=== PATIENT | female | born 1960 | race Caucasian/White ===

== ENCOUNTER 2023-10-14 07:33 | Outpatient (AMB) | payer OTHER, SELFPAY ==
--- NOTE | 2023-10-14 07:45 | A.OFFPC_ITS ---
Vital Signs 10/14/23 07:48 Height 5 ft Weight 153 lb BMI 29.9 BP 130/80 Blood Pressure Location Lt brachial Position Sitting Pulse 93 Pulse Source Pulse Oximeter Pulse Oximetry (%) 98 Oxygen Delivery Method Room Air Intake Visit Reasons: New patient-Pre Diabetic, High Cholesterol Intake Note: Pt is here today as a New Patient to [facility] care Allergies No Known Allergies Allergy (Verified 10/14/23 07:48) Medication List - Last Reconciled 10/14/23 by Shaina Sylvester MD atorvastatin 10 mg PO BEDTIME metformin 500 mg PO BID pantoprazole 40 mg PO DAILY Tobacco use date assessed: 10/14/23 Dental Screening Dental Screen Date: 10/14/23 Did you have a dental visit in the last 12 months?: No Was dental information given to patient?: Patient has dentist HPI New patient-Pre Diabetic, High Cholesterol HPI Details Pt presents for [employer]. PMH includes DM2, hyperlipid, controlled on medications. Patient follows up with Nephrology for white coat syndrome and has been having 24 hour blood pressure monitoring annually with normal blood pressure readings. PFSH Family History Father No problems noted. Mother CVA (cerebral vascular accident), Onset Age: 80 Social History Household Members Other:: , 2 children. libriarian, Housing: House Patient Tobacco Use Status: Never used Tobacco e-Cigarette/Vaping Use: Never Used service: No Current occupational status: employed Cognitive needs: No Hearing needs: No Vision needs: Yes Questionnaire PHQ-9 Over the last 2 weeks, how often have you been bothered by any of the following problems? 1. Little interest or pleasure in doing things: several days 2. Feeling down, depressed, or hopeless: several days 3. Trouble falling or staying asleep, or sleeping too much: several days 4. Feeling tired or having little energy: several days 5. Poor appetite or overeating: several days 6. Feeling bad about yourself - or that you are a failure or have let yourself or your family down: several days 7. Trouble concentrating on things, such as reading the newspaper or watching television: several days 8. Moving or speaking so slowly that other people could have noticed. Or the opposite - being so fidgety or restless that you have been moving around a lot more than usual: several days 9. Thoughts that you would be better off or of hurting yourself in some way: several days Total score: 9 Depression Screening Interpretation: Negative Depression Screening Done: Yes Source: Developed by Drs. Popeye Torres, Kaila Cummins, George New and colleagues, with an educational araceli from [email or web address]. Thrive Questionnaire Date Thrive assessed: 10/14/23 I am a: Patient What is your living situation today?: I have a steady place to live Within the past 12 months, did the food you bought not last and you didn't have the money to get more?: I choose not to answer this question Within the past 12 months, did you worry whether your food would run out before you got money to buy more?: I choose not to answer this question Do you have trouble paying for medicines?: I choose not to answer this question Do you have trouble getting transportation to medical appointments?: I choose not to answer this question Do you have trouble paying your heating and electricity bill?: I choose not to answer this question Do you have trouble taking care of your child, family member or friend?: I choose not to answer this question Do you have trouble with day-to-day activities such as bathing, preparing meals, shopping, managing finances, etc.?: I choose not to answer this question Are you currently unemployed and looking for a job?: I choose not to answer this question Are you interested in more education?: I choose not to answer this question THRIVE Score: 0 AUDIT C Alcohol Use Questionnaire (AUDIT-C) 1. How often do you have a drink containing alcohol?: Monthly or less 2. How many drinks containing alcohol do you have on a typical day when you are drinking?: 1 or 2 3. How often do you have six or more drinks on one occasion?: Never Total Score: 1 KAILAH-7 AMB Questionnaire AKILAH-7 Date AKILAH - 7 assessed: 10/14/23 Feeling nervous, anxious, or on edge: 2 = More than half the days Not being able to stop or control worryin = More than half the days Worrying too much about different things: 1 = Several days Trouble relaxin = Several days Being so restless that it is hard to sit still: 1 = Several days Becoming easily annoyed or irritable: 1 = Several days Feeling afraid as if something awful might happen: 1 = Several days Total AKILAH-7 score (0-4 normal; 5-9 mild; 10-14 moderate; 15-21 severe): 9 Source: Developed by Drs. Popeye Torres, Kaila Cummins, George New and colleagues, with an educational araceli from [email or web address]. Review of Systems Const All systems reviewed & are unremarkable except as noted in HPI and below Reports no additional complaints Eyes Reports no additional complaints ENT Reports no additional complaints Card Reports no additional complaints Resp Reports no additional complaints GI Reports no additional complaints Reports no additional complaints Musc Reports no additional complaints Physical exam (Primary Care) Vital Signs: Last Vital Signs Pulse 93 10/14/23 07:48 BP 142/92 H 10/14/23 07:48 Pulse Ox 98 10/14/23 07:48 Oxygen Delivery Method Room Air 10/14/23 07:48 BMI result Body Mass Index 29.9 Tobacco/Smoking Status: Tobacco use Status Tobacco use date assessed 10/14/23 10/14/23 07:52 Patient Tobacco Use Status Never used Tobacco 10/14/23 07:52 e-Cigarette/Vaping Use Never Used 10/14/23 07:52 PHQ-9: PHQ-9 Score PHQ-9: Total score 9 10/14/23 07:54 Depression Screening Interpretation: Negative Thrive Assessment: Date of Thrive Assessment Date Thrive assessed 10/14/23 10/14/23 07:54 Const General: no acute distress HENMT Head: Yes normal to inspection Ears: hearing grossly normal bilaterally General nose exam: Normal external nose present Face and sinus: Yes normal facial exam Mouth: Normal oral and palatal mucosa present Throat: Yes posterior oropharynx normal Eyes General: appearance normal, both eyes and all related structures Neck Neck: Yes no lymphadenopathy and Yes supple Resp Effort & Inspection: normal respiratory effort Auscultation: clear to auscultation bilaterally Cardio Rhythm: regular rhythm Heart sounds: S1 normal heart sound present and S2 normal heart sound present GI Inspection: Yes normal to inspection Palpation (GI): Soft to palpation and No hepatosplenomegaly present Percussion: Yes normal to percussion Auscultation: normal bowel sounds Assessment and Plan Assessment & Plan (1) DM type 2 (diabetes mellitus, type 2): Code(s): E11.9 - Type 2 diabetes mellitus without complications Plan: Check A1c continue metformin ADA diet regular physical activity discussed with the patient follow-up in 3 months (2) Graves disease: Comment: used to take Methimazole, no off meds Code(s): E05.00 - Thyrotoxicosis with diffuse goiter without thyrotoxic crisis or storm Plan: Monitor TSH (3) Gallbladder polyp: Comment: [place] 2022 Code(s): K82.4 - Cholesterolosis of gallbladder Plan: We will obtain a copy of ultrasound report (4) Hyperlipemia: Code(s): E78.5 - Hyperlipidemia, unspecified Plan: Continue atorvastatin check lipid profile (5) GERD (gastroesophageal reflux disease): Code(s): K21.9 - Gastro-esophageal reflux disease without esophagitis Plan: Continue PPI (6) Prolapse of female bladder, acquired: Comment: , erosions in cervix, patient wears a pessary Code(s): N81.10 - Cystocele, unspecified (7) H/O knee surgery: Comment: L meniscus surgery Code(s): Z98.890 - Other specified postprocedural states (8) JUDY positive: Code(s): R76.8 - Other specified abnormal immunological findings in serum (9) White coat syndrome without diagnosis of hypertension: Comment: Follow-up with nephrology, 24 blood pressure monitoring annually Code(s): R03.0 - Elevated blood-pressure reading, without diagnosis of hypertension Orders: Orders Hemoglobin A1c Today E11.9 - Type 2 diabetes mellitus without complications, E78.5 - Hyperlipidemia, unspecified, I10 - Essential (primary) hypertension Complete Blood Count Auto Diff Today E11.9 - Type 2 diabetes mellitus without complications, E78.5 - Hyperlipidemia, unspecified, I10 - Essential (primary) hypertension UA w Microscopic Today R76.8 - Other specified abnormal immunological findings in serum Hemoglobin A1c 3 Months E11.9 - Type 2 diabetes mellitus without complications, E78.5 - Hyperlipidemia, unspecified Comprehensive [place]. Panel Fast 3 Months E11.9 - Type 2 diabetes mellitus without complications, E78.5 - Hyperlipidemia, unspecified Lipid Panel Today E11.9 - Type 2 diabetes mellitus without complications, E78.5 - Hyperlipidemia, unspecified, I10 - Essential (primary) hypertension Comprehensive [place]. Panel Fast Today E11.9 - Type 2 diabetes mellitus without complications, E78.5 - Hyperlipidemia, unspecified, I10 - Essential (primary) hypertension TSH reflex Free T4 Today E11.9 - Type 2 diabetes mellitus without complications, E78.5 - Hyperlipidemia, unspecified, I10 - Essential (primary) hypertension Microalbumin, Random (w Creat) Today E11.9 - Type 2 diabetes mellitus without complications, E78.5 - Hyperlipidemia, unspecified, I10 - Essential (primary) hypertension Vitamin D 25-OH Total Today Z00.00 - Encounter for general adult medical exa mination without abnormal findings JUDY Reflex Titer and Pattern Today R76.8 - Other specified abnormal immunological findings in serum Lipid Panel 3 Months E11.9 - Type 2 diabetes mellitus without complications, E78.5 - Hyperlipidemia, unspecified Coding Level of Care Code New Pt Prev Care 40-64y(81631) Diagnoses DM type 2 (diabetes mellitus, type 2) E11.9 Graves disease E05.00 Gallbladder polyp K82.4 Hyperlipemia E78.5 GERD (gastroesophageal reflux disease) K21.9 Prolapse of female bladder, acquired N81.10 H/O knee surgery Z98.890 JUDY positive R76.8 White coat syndrome without diagnosis of hypertension R03.0
[2023-10-14 07:48] VITALS: BP 130/80; PULSE 93; O2SAT 98; BMI 29.9
== END 2023-10-14 09:50 | disposition home or self-care (01) ==
PROVIDERS: PCP Internal Medicine; Visit Provider Internal Medicine
DX: Z00.00 Encounter for general adult medical examination without abnormal findings (principal); E11.9 Type 2 diabetes mellitus without complications; E05.00 Thyrotoxicosis with diffuse goiter without thyrotoxic crisis or storm; K82.4 Cholesterolosis of gallbladder; E78.5 Hyperlipidemia, unspecified; K21.9 Gastro-esophageal reflux disease without esophagitis; N81.10 Cystocele, unspecified; Z98.890 Other specified postprocedural states; R76.8 Other specified abnormal immunological findings in serum; R03.0 Elevated blood-pressure reading, without diagnosis of hypertension
CPT/HCPCS: 99386

== ENCOUNTER 2024-02-28 12:32 | Outpatient (AMB) | payer OTHER, SELFPAY ==
--- NOTE | 2024-02-28 12:38 | MHC.PC.OV ---
Vital Signs 02/28/24 12:39 Height 5 ft Weight 145 lb BMI 28.3 BP 136/82 Blood Pressure Location Lt brachial Position Sitting Pulse 105 H Pulse Source Pulse Oximeter Pulse Oximetry (%) 97 Oxygen Delivery Method Room Air Intake Visit Reasons: 3-4 month follow up Intake Note: Pt is here today for a follow up visit. Allergies No Known Allergies Allergy (Verified 02/28/24 12:51) Medication List - Last Reconciled 02/28/24 by Shaina Sylvester MD atorvastatin 10 mg PO BEDTIME metformin 500 mg PO BID pantoprazole 40 mg PO DAILY Tobacco use date assessed: 02/28/24 Dental Screening Dental Screen Date: 10/14/23 HPI 3-4 month follow up HPI Details Pt presents for f/u DM 2, hyperlipid, stable on meds. PFSH Surgical History H/O knee surgery Family History Father No problems noted. Mother CVA (cerebral vascular accident), Onset Age: 80 Social History Household Members Other:: , 2 children. libriarian, Housing: House Patient Tobacco Use Status: Never used Tobacco e-Cigarette/Vaping Use: Never Used service: No Current occupational status: employed Cognitive needs: No Hearing needs: No Vision needs: Yes Questionnaire PHQ-9 Over the last 2 weeks, how often have you been bothered by any of the following problems? 1. Little interest or pleasure in doing things: several days 2. Feeling down, depressed, or hopeless: several days 3. Trouble falling or staying asleep, or sleeping too much: more than half the days 4. Feeling tired or having little energy: several days 5. Poor appetite or overeating: several days 6. Feeling bad about yourself - or that you are a failure or have let yourself or your family down: several days 7. Trouble concentrating on things, such as reading the newspaper or watching television: several days 8. Moving or speaking so slowly that other people could have noticed. Or the opposite - being so fidgety or restless that you have been moving around a lot more than usual: not at all 9. Thoughts that you would be better off or of hurting yourself in some way: not at all Total score: 8 Depression Screening Interpretation: Negative Depression Screening Done: Yes 13874 - PHQ-9 Billing: Yes Source: Developed by Drs. Popeye Torres, Kaial Cummins, George New and colleagues, with an educational araceli from [email or web address]. Thrive Questionnaire Date Thrive assessed: 02/28/24 I am a: Patient What is your living situation today?: I have a steady place to live Within the past 12 months, did the food you bought not last and you didn't have the money to get more?: Never true Within the past 12 months, did you worry whether your food would run out before you got money to buy more?: Never true Do you have trouble paying for medicines?: No Do you have trouble getting transportation to medical appointments?: No Do you have trouble paying your heating and electricity bill?: No Do you have trouble taking care of your child, family member or friend?: No Do you have trouble with day-to-day activities such as bathing, preparing meals, shopping, managing finances, etc.?: No Are you currently unemployed and looking for a job?: No Are you interested in more education?: No Please select the resources that you would like help with: None Currently or been in a relationship where the following occur: No concerns reported THRIVE Score: 0 AUDIT C Alcohol Use Questionnaire (AUDIT-C) 1. How often do you have a drink containing alcohol?: Never 3. How often do you have six or more drinks on one occasion?: Never Total Score: 0 AKILAH-7 AMB Questionnaire AKILAH-7 Date AKILAH - 7 assessed: 02/28/24 Feeling nervous, anxious, or on edge: 2 = More than half the days Not being able to stop or control worryin = More than half the days Worrying too much about different things: 2 = More than half the days Trouble relaxin = More than half the days Being so restless that it is hard to sit still: 0 = Not at all Becoming easily annoyed or irritable: 1 = Several days Feeling afraid as if something awful might happen: 1 = Several days Total AKILAH-7 score (0-4 normal; 5-9 mild; 10-14 moderate; 15-21 severe): 10 Source: Developed by Drs. Popeye Torres, Kaila Cummins, George New and colleagues, with an educational araceli from [email or web address]. Review of Systems Const All systems reviewed & are unremarkable except as noted in HPI and below Eyes Reports no additional complaints ENT Reports no additional complaints Card Reports no additional complaints Resp Reports no additional complaints GI Reports no additional complaints Reports no additional complaints Physical exam (Primary Care) Vital Signs: Last Vital Signs Pulse 105 H 02/28/24 12:39 BP 136/82 02/28/24 12:39 Pulse Ox 97 02/28/24 12:39 Oxygen Delivery Method Room Air 02/28/24 12:39 BMI result Body Mass Index 28.3 Tobacco/Smoking Status: Tobacco use Status Tobacco use date assessed 02/28/24 02/28/24 12:55 Patient Tobacco Use Status Never used Tobacco 02/28/24 12:55 e-Cigarette/Vaping Use Never Used 02/28/24 12:39 PHQ-9: PHQ-9 Score PHQ-9: Total score 8 02/28/24 12:55 Depression Screening Interpretation: Negative Thrive Assessment: Date of Thrive Assessment Date Thrive assessed 02/28/24 02/28/24 12:55 Currently or been in a relationship where the following occur: No concerns reported Const General: no acute distress HENMT Head: Yes normal to inspection Ears: hearing grossly normal bilaterally Face and sinus: Yes normal facial exam Mouth: Normal oral and palatal mucosa present Throat: Yes posterior oropharynx normal Neck Neck: Yes supple Resp Effort & Inspection: normal respiratory effort Auscultation: clear to auscultation bilaterally Cardio Rhythm: regular rhythm Heart sounds: S1 normal heart sound present and S2 normal heart sound present GI Inspection: Yes normal to inspection Palpation (GI): Soft to palpation Percussion: Yes normal to percussion Auscultation: normal bowel sounds Assessment and Plan Assessment & Plan (1) DM type 2 (diabetes mellitus, type 2): Code(s): E11.9 - Type 2 diabetes mellitus without complications Plan: A1C is 5.6, cont Metformin, ADA diet, increase exercise (2) Hyperlipemia: Code(s): E78.5 - Hyperlipidemia, unspecified Plan: cont Atrovastatin (3) JUDY positive: Comment: no active,monitor Code(s): R76.8 - Other specified abnormal immunological findings in serum Plan: asymptomatic (4) White coat syndrome without diagnosis of hypertension: Comment: Follow-up with nephrology, 24 blood pressure monitoring annually Code(s): R03.0 - Elevated blood-pressure reading, without diagnosis of hypertension Plan: monitor Orders: Orders Complete Blood Count Auto Diff 6 Months E11.9 - Type 2 diabetes mellitus without complications, E78.5 - Hyperlipidemia, unspecified Lipid Panel 6 Months E11.9 - Type 2 diabetes mellitus without complications, E78.5 - Hyperlipidemia, unspecified Comprehensive [place]. Panel Fast 6 Months E11.9 - Type 2 diabetes mellitus without complications, E78.5 - Hyperlipidemia, unspecified Hemoglobin A1c 6 Months E11.9 - Type 2 diabetes mellitus without complications, E78.5 - Hyperlipidemia, unspecified Microalbumin, Random (w Creat) 6 Months E11.9 - Type 2 diabetes mellitus without complications, E78.5 - Hyperlipidemia, unspecified Coding Level of Care Code Est Pt Level 4 (84855) Diagnoses DM type 2 (diabetes mellitus, type 2) E11.9 Hyperlipemia E78.5 JUDY positive R76.8 White coat syndrome without diagnosis of hypertension R03.0
[2024-02-28 12:39] VITALS: BP 136/82; PULSE 105; O2SAT 97; BMI 28.3
== END 2024-02-28 13:17 | disposition home or self-care (01) ==
PROVIDERS: PCP Internal Medicine; Visit Provider Internal Medicine
DX: E11.9 Type 2 diabetes mellitus without complications (principal); E78.5 Hyperlipidemia, unspecified; R76.8 Other specified abnormal immunological findings in serum; R03.0 Elevated blood-pressure reading, without diagnosis of hypertension
CPT/HCPCS: 99214

== ENCOUNTER 2024-12-21 11:40 | Outpatient (AMB) | payer OTHER, SELFPAY ==
[2024-12-21 11:58] VITALS: BP 136/86; PULSE 104; RESP 20; TEMP 37; O2SAT 99; BMI 27.5
--- NOTE | 2024-12-21 11:58 | A.OFFPC_ITS ---
Vital Signs 12/21/24 11:58 Height 5 ft Weight 141 lb BMI 27.5 BP 136/86 Blood Pressure Location Lt brachial Position Sitting Respiration 20 Pulse 104 H Pulse Source Pulse Oximeter Temp 98.6 F Temp Source Oral Pulse Oximetry (%) 99 Oxygen Delivery Method Room Air Intake Visit Reasons: 6 month F/U Intake Note: Pt is here today for 6 months follow up visit. Allergies No Known Allergies Allergy (Verified 12/21/24 12:01) Medication List - Last Reconciled 12/21/24 by Shaina Sylvester MD atorvastatin 10 mg PO BEDTIME metformin 500 mg PO BID pantoprazole 40 mg PO DAILY Tobacco use date assessed: 12/21/24 Dental Screening Dental Screen Date: 12/21/24 Did you have a dental visit in the last 12 months?: Yes Did you have a dental problem in the last 6 months where you did not have access to dental care?: No Was dental information given to patient?: Patient has dentist HPI 6 month F/U HPI Details Patient presents for the follow-up of hyperlipidemia hypertension chronic GERD stable on current medications. Patient has been taking multivitamin with iron for borderline low iron level. [facility] Medical History (Updated 12/21/24 @ 15:26 by Shaina Sylvester MD) Graves disease Hyperlipemia DM type 2 (diabetes mellitus, type 2) White coat syndrome without diagnosis of hypertension Surgical History History of esophagogastroduodenoscopy (EGD) Hx of colonoscopy H/O knee surgery Family History Father No problems noted. Mother CVA (cerebral vascular accident), Onset Age: 80 Social History Household Members Other:: , 2 children. libriarian, Housing: House Patient Tobacco Use Status: Never used Tobacco e-Cigarette/Vaping Use: Never Used service: No Current occupational status: employed Cognitive needs: No Hearing needs: No Vision needs: Yes Questionnaire PHQ-9 Over the last 2 weeks, how often have you been bothered by any of the following problems? 1. Little interest or pleasure in doing things: not at all 2. Feeling down, depressed, or hopeless: several days 3. Trouble falling or staying asleep, or sleeping too much: several days 4. Feeling tired or having little energy: several days 5. Poor appetite or overeating: several days 6. Feeling bad about yourself - or that you are a failure or have let yourself or your family down: several days 7. Trouble concentrating on things, such as reading the newspaper or watching television: several days 8. Moving or speaking so slowly that other people could have noticed. Or the opposite - being so fidgety or restless that you have been moving around a lot more than usual: not at all 9. Thoughts that you would be better off or of hurting yourself in some wa y: not at all Total score: 6 Depression Screening Interpretation: Negative Depression Screening Done: Yes 19876 - PHQ-9 Billing: Yes Source: Developed by Drs. Popeye Torres, Kaila Cummins, George New and colleagues, with an educational arcaeli from [employer]. Thrive Questionnaire Date Thrive assessed: 12/21/24 I am a: Patient What is your living situation today?: I have a steady place to live Within the past 12 months, did the food you bought not last and you didn't have the money to get more?: Never true Within the past 12 months, did you worry whether your food would run out before you got money to buy more?: Never true Do you have trouble paying for medicines?: No Do you have trouble getting transportation to medical appointments?: No Do you have trouble paying your heating and electricity bill?: No Do you have trouble taking care of your child, family member or friend?: No THRIVE Score: 0 AKILAH-7 AMB Questionnaire AKILAH-7 Date AKILAH - 7 assessed: 12/21/24 Feeling nervous, anxious, or on edge: 0 = Not at all Not being able to stop or control worryin = Not at all Worrying too much about different things: 0 = Not at all Trouble relaxin = Not at all Being so restless that it is hard to sit still: 0 = Not at all Becoming easily annoyed or irritable: 0 = Not at all Feeling afraid as if something awful might happen: 0 = Not at all Total AKILAH-7 score (0-4 normal; 5-9 mild; 10-14 moderate; 15-21 severe): 0 Source: Developed by Drs. Popeye Torres, Kaila Cummins, George New and colleagues, with an educational araceli from [employer]. AKILAH-7 Assessment Billing AKILAH-7 Assessment Tool: AKILAH-7 Assessment 86821 Review of Systems Const All systems reviewed & are unremarkable except as noted in HPI and below Eyes Reports no additional complaints ENT Reports no additional complaints Card Reports no additional complaints Resp Reports no additional complaints GI Reports no additional complaints Reports no additional complaints Physical exam (Primary Care) Vital Signs: Last Vital Signs Temp 98.6 F 12/21/24 11:58 Pulse 104 H 12/21/24 11:58 Resp 20 12/21/24 11:58 BP 136/86 12/21/24 11:58 Pulse Ox 99 12/21/24 11:58 Oxygen Delivery Method Room Air 12/21/24 11:58 BMI result Body Mass Index 27.5 Tobacco/Smoking Status: Tobacco use Status Tobacco use date assessed 12/21/24 12/21/24 12:04 Patient Tobacco Use Status Never used Tobacco 12/21/24 12:04 e-Cigarette/Vaping Use Never Used 12/21/24 12:00 PHQ-9: PHQ-9 Score PHQ-9: Total score 6 12/21/24 12:29 Depression Screening Interpretation: Negative Thrive Assessment: Date of Thrive Assessment Date Thrive assessed 12/21/24 12/21/24 12:00 Const General: no acute distress HENMT Head: Yes normal to inspection Mouth: Normal oral and palatal mucosa present Eyes General: appearance normal, both eyes and all related structures Neck Neck: Yes no lymphadenopathy and Yes supple Resp Effort & Inspection: normal respiratory effort Auscultation: clear to auscultation bilaterally Cardio Rhythm: regular rhythm Heart sounds: S1 normal heart sound present and S2 normal heart sound present GI Inspection: Yes normal to inspection Palpation (GI): Soft to palpation Percussion: Yes normal to percussion Auscultation: normal bowel sounds Coding Level of Care Code Est Pt Level 4 (61485) Diagnoses White coat syndrome without diagnosis of hypertension R03.0 Hyperlipemia E78.5 DM type 2 (diabetes mellitus, type 2) E11.9 Graves disease E05.00 Additional Codes AKILAH-7 Assessment Billing - AKILAH-7 Assessment Tool: AKILAH-7 Assessment 46637 ([id number]) PHQ-9 - 47713 - PHQ-9 Billing: Yes ([id number]) Assessment & Plan Assessment & Plan (1) White coat syndrome without diagnosis of hypertension: Comment: Follow-up with nephrology, 24 blood pressure monitoring annually Code(s): R03.0 - Elevated blood-pressure reading, without diagnosis of hypertension Category: Medical Plan: cont lifestyle (2) Hyperlipemia: Code(s): E78.5 - Hyperlipidemia, unspecified Category: Medical Plan: Continue statin check lipid profile (3) DM type 2 (diabetes mellitus, type 2): Comment: managed by endo, a1c 5.6 11/2024 Code(s): E11.9 - Type 2 diabetes mellitus without complications Category: Medical Plan: Continue ADA diet increase physical activity discussed with the patient. Continue metformin follow-up with endocrinology (4) Graves disease: Comment: used to take Methimazole, no off meds, follow-up by endocrinology Code(s): E05.00 - Thyrotoxicosis with diffuse goiter without thyrotoxic crisis or storm Category: Medical Plan: Follow-up with endocrinology Orders: Orders Complete Blood Count Auto Diff 6 Months E78.5 - Hyperlipidemia, unspecified IRON PROFILE 6 Months E78.5 - Hyperlipidemia, unspecified Comprehensive [place]. Panel Fast 6 Months E78.5 - Hyperlipidemia, unspecified Lipid Panel 6 Months E78.5 - Hyperlipidemia, unspecified Medications: New atorvastatin 10 mg PO BEDTIME 90 tabs 3RF
--- OUTSIDE RECORDS SUMMARY | 2024-12-21 12:34 | XMS_ITS | Clinical Summary ---
Author Organization [facility] Address [address] [place] [address] Care Team Providers Care Windshield Wiper Repairer Name Role Phone Selma Carson MD Primary Care Provider [phone] Social History Tobacco Use Types Packs/Day Years Used Date Smoking Tobacco: Never Assessed Sex and Gender Information Value Date Recorded Sex Assigned at Not on file Gender Identity Not on file Sexual Orientation Not on file Plan of Treatment Not on file Care Teams Windshield Wiper Repairer Relationship Specialty Start Date End Date Selma Carson MD [address] [facility] [address] [place] [address] PCP - General Animal Geneticist 07/18/23
--- OUTSIDE RECORDS SUMMARY | 2024-12-21 12:34 | XMS_ITS | Patient Health Record ---
Author Organization Steffi Phelps MD Address [address] [place] [address] Care Team Providers Care Bilingual Executive Assistant Name Role Phone Selma Carson Primary Care Provider Noemy Waterman Unavailable [phone] Allergies No Known Allergies Results Component Value Reference Range Notes THINPREP PAP AND HPV mRNA E6 /E7 REFLEX 16,18 Reviewed date:04/13/2024 04:56:36 AM Interpretation:pap and hpv neg Performing Lab:NL2, [facility] [address], [address] Marielena Banks Notes/Report: Received Date: NON-FASTING CLINICAL INFORMATION: SCREENING, VAGINAL ESTROGEN LMP: INTEGRATION LEAD PREV. PAP: ?2020 PREV. BX: NONE SOURCE: Cervix, Endocervix STATEMENT OF ADEQUACY: Satisfactory for evaluation. Endocervical/transformati on zone component present. INTERPRETATION/RESULT: Cytology Results: Negative for intraepithelial lesion or malignancy. SEA AIR LAND OFFICER: NONA BENSON(ASCP) CT scre ening location: [address] [address] HPV mRNA E6/E7 Not Detected Not Detected Methodology: Ingot Supervisor-Mediate d Amplification This assay detects E6/E7 viral messenger RNA (mRNA) from 14 high-risk HPV types (16,18,31,33,35,39,45 ,51,52,56,58,59,66,68 ). Cervical sources are required for HPV testing. If a vaginal source from a patient who has had a total hysterectomy with removal of cervix was submitted, please contact the testing laboratory for alternative testing options. For additional information, please refer to http://education.VidRocket/faq/ AOJ043j8 (This link if provided for information/ educational purposes only.) Reason For Referral No Information Medications Medication SIG (Take, Route, Frequency, Duration) Notes Start Date End Date Status metFORMIN HCl 500 MG 1 tablet with a mary l Orally twice a day Active Estradiol 0.1 MG/GM as directed Vaginal twice a week Active Atorvastatin Calcium 10 MG 1 tablet Orally Once a day Active Problems Problem Type SNOMED Code ICD Code Onset Dates Problem Status W/U Status Risk Notes Problem Prolapse of uterine cervical stump (006075232) Cervical stump prolapse (N81.85) Active confirmed Vital Signs Blood pressure diastolic 90 mm Hg 04/06/2024 Height 60 in 04/06/2024 Blood pressure systolic 130 mm Hg 04/06/2024 Weight 142.8 lbs 04/06/2024 BMI 27.89 kg/m2 04/06/2024 Encounters Encounter Location Date Provider Diagnosis Noemy Shafer MD PhD [facility] [address] [place] [phone] 04/06/2024 Noemy Shafer Encounter for gynecological examination (general) (routine) with abnormal findings Z01.411 and Cervical stump prolapse N81.85 Assessments Encounter Date Diagnosis (ICD Code) Assessment Notes Treat ment Notes Treatment Clinical Notes 04/06/2024 Cervical stump prolapse (ICD-10 - N81.85) 04/06/2024 Encounter for gynecological examination (general) (routine) with abnormal findings (ICD-10 - Z01.411) Annual done. pessary removed, cleaned and replaced. Recommend continue estrogen cream. If ongoing issues with bleeding or erosion recommend f/u with Urogyn. Will place order in EPIC No blood and no erosions noted. pap and hpv done. recommend mammogram Plan Of Treatment No Information Insurance Providers Payer Name Payer Address Payer Phone Subscriber Number Group Number Insured Name Patient Relationship to Insured Coverage Start Date Coverage End Date [employer] [place] [address] [place] [address] [id number] Mayte Townsend Self - patient is the insured Medical (General) History Medical History History ICD Code Graves, high cholesterol, GERD PreDM cervical Stump prolapse Surgical History Surgery Date(Month/Year) SCHysterectomy LSC endometriosis Knee surgery - left meniscus
--- OUTSIDE RECORDS SUMMARY | 2024-12-21 12:34 | XMS_ITS | Patient Health Record ---
Author Organization [facility] Address [address] [facility] [address] [place] [address] Care Team Providers Care Carbon Grinder Name Role Phone LETTY Burk, DR BARCLAY Primary Care Provider Unavail J CARLOS Serrano Unavailable [phone] Reason For Referral No Information Plan Of Treatment No Information Insurance Providers Payer Name Payer Address Payer Phone Subscriber Number Group Number Insured Name Patient Relationship to Insured Coverage Start Date Coverage End Date [facility] [address] [place], [place] [phone] DAMIAN CHOI Self - patient is the insured
--- OUTSIDE RECORDS SUMMARY | 2024-12-21 12:34 | XMS_ITS | Encounter Summary ---
Author Organization [facility] Address [address] [place] [address] Phone Care Team Providers Care Dope Pourer Name Role Phone Lee Ann Carson MD Primary Care Provider [phone] Encounter Details Date Type Department Care Team (Late st Contact Info) Description 02/15/2022 Documentation Only [facility] [address] [facility] [address] [place] [address] Pradip Morales MD [address] [place] [address] [address] [place] [address] Social History Tobacco Use Types Packs/Day Years Used Date Smoking Tobacco: Never Smokeless Tobacco: Never Alcohol Use Standard Drinks/Week Comments Yes 0 (1 standard drink = 0.6 oz pure alcohol) Alcoholic Drinks/day: Occasional social drink Comments Unknown Sex and Gender Information Value Date Recorded Sex Assigned at Not on file Legal Sex Female 4:56 PM EST Gender Identity Not on file Sexual Orientation Not on file documented as of this encounter Plan of Treatment Not on file documented as of this encounter Visit Diagnoses Not on filedocumented in this encounter Care Teams Dope Pourer Relationship Specialty Start Date End Date Lee Ann Carson MD [address] [place] [address] [address] [place] [address] PCP - General 06/27/20 documented as of this encounter
--- OUTSIDE RECORDS SUMMARY | 2024-12-21 12:34 | XMS_ITS | Data Portability ---
Author Organization [facility], [facility] Address [id number] [place] [address] Assessment No assessment recorded. Plan of Treatment Reminders Order Date Submit Date Provider Last Modified By Organization Details Last Modified Time Details Appointments None record ed. Lab None record ed. Referral None record ed. Procedures None record ed. Surgeries None record ed. Imaging None record ed. Medication Orders None record ed. Patient TargetsNo targets recorded. Patient Instructions Encounter Date Encounter Id Patient Instructions Last Modified By Organization Details Last Modified Time 11/18/2023 [id number] discussed prolapse with [place] pt had a hysterectomy cx is retained at the introitus concerned because she is getting blood with the pessary which she has had for 5 years vagina today looks healthy pessary placed asked her to leave in place until her next visit continue premarin cream twice a week declines any surgical options f/u 6 weeks [email or web address] Not available 11/18/2023 16:56:36 12/27/2023 [id number] pt advised to us e estrogen cream twice a week remove pessary 1-2 a month and clean f/u 6 months [email or web address] Not available 12/27/2023 14:15:16 Reason for Referral None Reported. Problems No Known Problems Procedures Surgical History Date Name Laterality Status Provider Name and Address Organization Details Recorded Time hysterectomy completed Reyna Penaloza MD [address], [address], [facility] 11/18/2023 15:30:56 Knee arthroscopy/surge ry completed Reyna Penaloza MD [address], [address], [facility] 11/18/2023 15:30:32 Imaging Results None recorded. Procedure Notes None recorded. Medical Equipment None Reported. Allergies No known drug allergies Medications Name Sig Start Date Stop Date Status Note LastModified by Organization Details LastModified Time metformin 500 mg tablet active Not Available Not Available Not Available atorvastati n 10 mg tablet TAKE 1 TABLET BY MOUTH EVERYDAY AT BEDTIME active Not Available Not Available No t Available pantoprazol e 40 mg tablet,andreas yed release active Not Available Not Available Not Available esomeprazol e magnesium 40 mg capsule,del ayed release active Not Available Not Available Not Available lisinopril 5 mg tablet 11/17 completed Not Available Not Available Not Available estradiol 0.01% (0.1 mg/gram) vaginal cream INSERT 1 GM VAGINALLY EVERY SATURDAY AND SATURDAY active Not Available Not Available No t Available bismuth subcit K 140 mg-metronid azole 125 mg-tetracyc line 125 mg cap active Not Available Not Available Not Available Vitals Date Recorded Body height Body mass index (BMI) Body weight Systolic And Diastolic Provider Name and Address Organization Details Last Updated DateTime 11/18/2023 152.4 cm 29.4 kg/m2 14696.01 g 124/82 mm[Hg] eTrrance Cummins [facility] 11/18/2023 15:28:14 Date Recorded Body height Body mass index (BMI) Body weight Systolic And Diastolic Provider Name and Address Organization Details Last Updated DateTime 12/27/2023 152.4 cm 29.1 kg/m2 74890.26 g 137/81 mm[Hg] Yola Azul [facility] 12/27/2023 14:03:02 Social History Question Answer Notes LastModified by Organizat ion Details LastModified Time Tobacco Smoking Status Never Smoker Reyna Penaloza MD [address] [place] [address], [address], [place], [address], [facility] 11/18/2023 15:29:58 Drug Use? No [email or web address] Information no t available 11/18/2023 Sex: Unknown Functional Status Question Answer Note LastModified by Organizat ion Details LastModified Time What is your level of alcohol consumption? Occasional [email or web address] Information not available 11/18/2023 What is your occupation? L[email or web address] Information not available 11/15/2023 Mental Status None recorded. Family History Relationship Description Onset Age of this Age Resolved Age Notes LastModified by Organization Details LastModified Time Father Malignant neoplasm of prostate [email or web address] Not available 2023 15:29:17 Father Carcinoma of stomach [email or web address] Not available 2023 15:29:36 Medical History Condition Response Acid Reflux (GERD) Y Diabetes Y Hyperlipidemia Y Gynecological History Statement/Question Response STIs/STDs N Abnormal Pap N Current Control Method Hysterectom y Sexually Active? Y Obstetrics History GPAL:G 2 P 2 0 0 2 Type Value Full Term 2 Living 2 Total 2 Past Encounters Encounter ID Performer Location Encounter Start Date Encounter Closed Date Diagnosis/Indication Diagnosis SNOMED-CT Code Diagnosis ICD10 Code Diagnosis Note [id number] Reyna Penaloza MD [facility] [address] 11/18/2023 14:47:03 11/18/2023 15:59:44 Prolapse of female genital organs 78533094 N81.9 [id number] Reyna Penaloza MD [facility] [address] [address] 12/27/2023 13:49:59 12/27/2023 14:28:05 Prolapse of female genital organs 36653796 N81.9 Health Concerns Section Related Observation LastModified by Organization Detai ls LastModified Time None Recorded Concern Status LastModified by Organization Details LastModified Time None Recorded Advance Directives Directive None Recorded Payers Insurance Date Sequence Insurance Name Policy Number Policy Yip Covered Member ID Yip Member ID Guarantor Name 06/23/2024 1 [employer] [facility] (PP[place]) [id number] Mayte Townsend [id number] Mayte Townsend 12/27/2023 1 RYLEE [id number] Mayte Townsend [id number] Maytesy Townsend Notes Date Note Type Note Provider Name and Address Organization Details Recorded Time 11/18/2023 text/html 63 year old who had a TAHBSOshe subsequently developed a prolapse and was fitted for a pessaryshe then developed an erosion and the pessary was removedeach time she places the pessary she sees bleeding Reyna Penaloza MD [address] [facility], [address], [place], [address], [facility] 11/18/2023 16:56:50 12/27/2023 text/html pt here for pess jamison follow upno bleedingfeels it is helping her with prolapse Reyna Penaloza MD [address] [facility], [address], [place], [address], [facility] 12/27/2023 14:15:23 OBGyn Episode No OBEpisode recorded.
--- OUTSIDE RECORDS SUMMARY | 2024-12-21 12:34 | XMS_ITS | Encounter Summary ---
Author Organization [facility] Address [address] [place] [address] Care Team Providers Care Commercial Real Estate Manager Name Role Phone Selma Carson MD Primary Care Provider [phone] Jessica Boyer MD Unavailable Encounter Details Date Type Department Care Team ([facility] st Contact Info) Description 10/02/2023 Scanned Document [facility] [address] [facility] [place] [address] Pradip Crockett MD [address] [facility] [address] [place] [address] Social History Tobacco Use Types Packs/Day Years Used Date Smoking Tobacco: Never Smokeless Tobacco: Never Alcohol Use Standard Drinks/Week Comments Not Currently 0 (1 standard drink = 0.6 oz pur e alcohol) PHQ-2 Answer Date Recorded PHQ-2 Total Score 3 02/07/2022 Comments No Sex and Gender Information Value Date Recorded Sex Assigned at Not on file Legal Sex Female 6:52 PM EDT Gender Identity Female 02/05/2022 11:48 AM EDT Sexual Orientation Heterosexual (straight) 02/05 11:48 AM EDT documented as of this encounter Progress Notes * Pradip Crockett MD - 10/02/2023 12:30 PM EDT [place], Please contact patient: 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 A prescription has been called in. While taking the 14 days of treatment she should not take Atorvastatin (it can be resumed again when done) and she should stop the pantoprazole (also can resume after the 2 weeks). Follow up with Peyton Basilio APRN in 2-3 months. A follow up test to prove eradication can be ordered at that time. documented in this encounter Plan of Treatment Upcoming Encounters Date Type Department Care Team ([facility] Contact Info) Description 01/12/2025 4:00 PM EDT Office Visit [facility] [address] [facility] [address] [place] [phone] Kaiser Lee MD [address] [place] [phone] documented as of this encounter Procedures Procedure Name Priority Date/Time Associated Diagnosis Comments PATHOLOGY REPORT 10/02/2023 12:0 0 AM EDT documented in this encounter Results * PATHOLOGY REPORT (10/02/2023 12:00 AM EDT) us Pradip Crockett MD PATHOLOGY/CYTOLOGY ORDERABL ES Final Result documented in this encounter Visit Diagnoses Not on filedocumented in this encounter Care Teams Commercial Real Estate Manager Relationship Specialty Start Date End Date Selma Carson MD [address] [place] [address] PCP - General 05/29/21 Jessica Boyer MD [address] [place] [address] Physician Urogynecology 03/20/24 documented as of this encounter
--- OUTSIDE RECORDS SUMMARY | 2024-12-21 12:34 | XMS_ITS ---
Author Name [facility] Organization Unknown History of Medication Use Medication Directions Dispensed Refills Start Date End Date Stat us PANTOprazole (PROTONIX) 40 MG EC tablet Take 1 tablet (40 mg total) by mouth every morning before breakfast. 07/17/2023 06/15/2024 active metFORMIN (GLUCOPHAGE) 500 MG tablet Take 1 tablet (500 mg total) by mouth daily. 11/15/2021 active atorvastatin 10 mg tablet TAKE 1 TABLET BY MOUTH EVERYDAY AT BEDTIME active esomeprazole magnesium 40 mg capsule,delayed release active metformin 500 mg tablet active atorvastatin (LIPITOR) 10 MG tablet Take 10 mg by mouth daily. active LORazepam (ATIVAN) 0.5 MG tablet Take 1 tablet (0.5 mg total) by mouth 3 times daily (every 8 hours) as needed. active Problems Problem Status Onset Date Problem Type Date of Resolution Source GERD (gastroesophageal reflux disease) active 2022-02-07 ProblemAct [facility] Constipation active 2023-11-30 ProblemAct [facility] Hypertension active 2022-02-07 ProblemAct [facility] Prolapse, post-hysterectomy active 2023-10-16 ProblemAct [facility] Helicobacter pylori gastritis active 2023-11-30 ProblemAct [facility] Colon cancer screening active EncounterDiagnosisAct [facility] Sleep apnea active 2022-02-07 ProblemAct [facility] Vaginal pessary present active 2023-10-16 ProblemAct [facility] Fatty liver active 2023-11-30 ProblemAct [facility] Gallbladder polyp active 2023-11-30 ProblemAct [facility] Hyperlipidemia active 2022-02-[address] Anxiety active 2021-11-08 ProblemAct [facility] Encounters Encounter Type Encounter Reason Primary Diagnosis Location Date Ambulatory Follow-up Follow-up DDN 09/03/2024 Ambulatory Follow-up Follow-up DDN 04/23/2024 Ambulatory 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 [facility] 03/18/2024 Ambulatory Migraine without aura, intractable, without status migrainosus Migraine without aura, intractable, without status migrainosus DDN 02/24/2024 Ambulatory Female genital prolapse, unspecified Female genital prolapse, unspecified [facility] 12/27/2023 Ambulatory Follow-up Follow-up DDN 11/28/2023 Ambulatory no current diagnosis no current diagnosis [facility] 11/18/2023 Ambulatory 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 [facility] 10/18/2023 Ambulatory 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 [facility] 10/16/2023 Ambulatory Follow-up Follow-up DDN 10/16/2023 Ambulatory Gastro-esophageal reflux disease without esophagitis Gastro-esophageal reflux disease without esophagitis DD[facility] 10/02/2023 Ambulatory Gastro-esophageal reflux disease without esophagitis Gastro-esophageal reflux disease without esophagitis DDN 07/17/2023 Ambulatory Dizziness and giddiness DDN 06/28/2022 Ambulatory DDN 04/06/2022 Ambulatory DDN 04/04/2022 Ambulatory DDN 03/30/2022 Ambulatory Cervicalgia DDN 03/28/2022 Ambulatory DDN 03/22/2022 Ambulatory Cervicalgia DDN 03/19/2022 Ambulatory Cervicalgia DDN 03/14/2022 Ambulatory DDN 03/09/2022 Ambulatory Cervicalgia DDN 2022 Ambulatory Cervicalgia DDN 03/02/2022 Ambulatory Sensorineural he aring loss, bilateral DDN 03/01/2022 Ambulatory New daily persis tent headache (ndph) DDN 02/28/2022 Ambulatory Prolapse DDN 06/07/2021 Care Team Organization Name Specialty Phone Email Start Date End Da elisabeth DDN NING [facility]Z [facility] 09/03/2024 10/05/2024 [facility] 11/19/2023 [facility] 11/18/2023 [facility] Carlos Clemens Primary Care 10/15/2023 11/16/2024 [facility] Primary Care 04/06/2022 10/05/2024 [facility] Primary [facility] 02/07/2022 03/28/2022
== END 2024-12-21 14:58 | disposition home or self-care (01) ==
LOC: HO.HMCC 11:40
PROVIDERS: PCP Internal Medicine; Visit Provider Internal Medicine
DX: R03.0 Elevated blood-pressure reading, without diagnosis of hypertension (principal); E78.5 Hyperlipidemia, unspecified; E11.9 Type 2 diabetes mellitus without complications; E05.00 Thyrotoxicosis with diffuse goiter without thyrotoxic crisis or storm

== ENCOUNTER → 2024-12-21 11:40 | Outpatient (BNVA) | payer OTHER, SELFPAY | PROVIDERS: PCP Internal Medicine; Visit Provider Internal Medicine | DX: R03.0 Elevated blood-pressure reading, without diagnosis of hypertension (principal); E78.5 Hyperlipidemia, unspecified; K21.9 Gastro-esophageal reflux disease without esophagitis; E11.9 Type 2 diabetes mellitus without complications; E05.00 Thyrotoxicosis with diffuse goiter without thyrotoxic crisis or storm | CPT/HCPCS: 96127 ==

== ENCOUNTER 2025-05-20 12:45 | Outpatient (AMB) | payer OTHER, SELFPAY ==
--- NOTE | 2025-05-20 12:53 | MHC.PC.OV ---
Vital Signs 05/20/25 12:56 Height 5 ft Weight 135 lb BMI 26.4 BP 126/76 Blood Pressure Location Lt brachial Position Sitting Respiration 18 Pulse 94 Pulse Source Pulse Oximeter Temp 98.5 F Temp Source Oral Pulse Oximetry (%) 98 Oxygen Delivery Method Room Air Intake Visit Reasons: Follow up Intake Note: Pt is here today for a follow up visit. Allergies No Known Allergies Allergy (Verified 05/20/25 13:03) Tobacco use date assessed: 05/20/25 Dental Screening Dental Screen Date: 12/21/24 HPI Follow up HPI Details Pt presents for f/u DM 2, HTN, hyperlipid, stable on meds. 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 Patient was started on lisinopril 2.5 mg daily. She complains of chronic epigastric abdominal discomfort and heartburn worse after eating more noticed post since she has stopped taking pantoprazole 4 months ago. Patient negative endoscopy in 2021 and has been taking PPI since then but stopped recently because of concern side effect of kidney disease. [facility] Medical History Gallbladder polyp Hx of screening mammography Graves disease Hyperlipemia DM type 2 (diabetes mellitus, type 2) White coat syndrome without diagnosis of hypertension Surgical History History of esophagogastroduodenoscopy (EGD) Hx of colonoscopy H/O knee surgery Family History Father No problems noted. Mother CVA (cerebral vascular accident), Onset Age: 80 Social History Household Members Other:: , 2 children. libriarian, Housing: House Patient Tobacco Use Status: Never used Tobacco e-Cigarette/Vaping Use: Never Used service: No Current occupational status: employed Cognitive needs: No Hearing needs: No Vision needs: Yes Questionnaire Thrive Questionnaire Date Thrive assessed: 12/21/24 I am a: Patient What is your living situation today?: I have a steady place to live Within the past 12 months, did the food you bought not last and you didn't have the money to get more?: Never true Within the past 12 months, did you worry whether your food would run out before you got money to buy more?: Never true Do you have trouble paying for medicines?: No Do you have trouble getting transportation to medical appointments?: No Do you have trouble paying your heating and electricity bill?: No Do you have trouble taking care of your child, family member or friend?: No THRIVE Score: 0 AKILAH-7 AMB Questionnaire AKILAH-7 Date AKILAH - 7 assessed: 12/21/24 Source: Developed by Drs. Popeye Torres, Kaila Cummins, George New and colleagues, with an educational araceli from [employer]. Review of Systems Const All systems reviewed & are unremarkable except as noted in HPI and below Eyes Reports no additional complaints ENT Reports no additional complaints Card Reports no additional complaints Resp Reports no additional complaints GI Reports no additional complaints Reports no additional complaints Physical exam (Primary Care) Vital Signs: Last Vital Signs Temp 98.5 F 05/20/25 12:56 Pulse 94 05/20/25 12:56 Resp 18 05/20/25 12:56 BP 126/76 05/20/25 12:56 Pulse Ox 98 05/20/25 12:56 Oxygen Delivery Method Room Air 05/20/25 12:56 BMI result Body Mass Index 26.4 Tobacco/Smoking Status: Tobacco use Status Tobacco use date assessed 05/20/25 05/20/25 13:06 Patient Tobacco Use Status Never used Tobacco 05/20/25 12:53 e-Cigarette/Vaping Use Never Used 05/20/25 12:53 Thrive Assessment: Date of Thrive Assessment Date Thrive assessed 12/21/24 05/20/25 12:53 Const General: no acute distress HENMT Head: Yes normal to inspection Ears: hearing grossly normal bilaterally Eyes General: appearance normal, both eyes and all related structures Neck Neck: Yes no lymphadenopathy and Yes supple Resp Effort & Inspection: normal respiratory effort Auscultation: clear to auscultation bilaterally Cardio Rhythm: regular rhythm Heart sounds: S1 normal heart sound present and S2 normal heart sound present GI Inspection: Yes normal to inspection Palpation (GI): Soft to palpation Percussion: Yes normal to percussion Auscultation: normal bowel sounds Coding Level of Care Code Est Pt Level 4 (44327) Diagnoses Hyperlipidemia E78.5 DM type 2 (diabetes mellitus, type 2) E11.9 White coat syndrome without diagnosis of hypertension R03.0 GERD (gastroesophageal reflux disease) K21.9 Assessment & Plan Assessment & Plan (1) Hyperlipidemia: Code(s): E78.5 - Hyperlipidemia, unspecified Category: Medical Plan: Continue atorvastatin (2) DM type 2 (diabetes mellitus, type 2): Comment: managed by endo, a1c 5.6 11/2024 Code(s): E11.9 - Type 2 diabetes mellitus without complications Category: Medical Plan: A1c was 5.6 in March according to the patient. She is established with cloud systems administrator and continues to take metformin (3) White coat syndrome without diagnosis of hypertension: Comment: Follow-up with nephrology, 24 blood pressure monitoring annually Code(s): R03.0 - Elevated blood-pressure reading, without diagnosis of hypertension Category: Medical Plan: Patient will follow-up with mine engineering supervisor and continue lisinopril (4) GERD (gastroesophageal reflux disease): Code(s): K21.9 - Gastro-esophageal reflux disease without esophagitis Category: Medical Plan: She will follow-up with GI
[2025-05-20 12:56] VITALS: BP 126/76; PULSE 94; RESP 18; TEMP 36.9; O2SAT 98; BMI 26.4
== END 2025-05-20 15:30 | disposition home or self-care (01) ==
LOC: HO.HMCC 12:46
PROVIDERS: PCP Internal Medicine; Visit Provider Internal Medicine
DX: E78.5 Hyperlipidemia, unspecified (principal); E11.9 Type 2 diabetes mellitus without complications; R03.0 Elevated blood-pressure reading, without diagnosis of hypertension; K21.9 Gastro-esophageal reflux disease without esophagitis